=== PATIENT | male | born 1945 | race Hispanic/Latino ===

== ENCOUNTER 2021-07-31 09:00 | Inpatient (IN) | payer OTHER ==
[~2021-07-31] VITALS: Ht 167.6 cm; Wt 92.5 kg
[2021-07-31 10:00] VITALS: BP 145/84
[2021-08-01] MEDS ORDERED: CARB15DR OU (15:26)
[2021-08-01] MEDS ORDERED: PRAV40TA3 PO (15:26)
[2021-08-01] MEDS ORDERED: albuterol IH (15:26)
[2021-08-01] MEDS ORDERED: MIRT-93 PO (15:26)
[2021-08-01] MEDS ORDERED: GEMF600T89 PO (15:26)
[2021-08-01] MEDS ORDERED: BUSP5TAB3 PO (15:26)
[2021-08-01] MEDS ORDERED: ASPI-1197 PO (15:26)
[2021-08-02] VITALS (22 sets, daily range): BP systolic 103–150; BP diastolic 50–86
[2021-08-02] MEDS: CEFAZOLIN SODIUM 1 GM VIAL ONE ×2 (08:29→12:45)
[2021-08-02] MEDS ORDERED: ACETAMINOPHEN 500 MG TABLET ONE (09:04)
[2021-08-02] MEDS ORDERED: CELECOXIB 200 MG CAP ONE (09:05)
[2021-08-02] MEDS ORDERED: SUCCINYLCHOLINE CHLORIDE 20 MG/ML 10 ML VIAL ONE (10:07)
[2021-08-02] MEDS ORDERED: PROPOFOL 10 MG/ML 20ML VIAL IV ONE (10:07)
[2021-08-02] MEDS ORDERED: LIDOCAINE PF 100MG/5ML (2%) SYRINGE 5ML ONE (10:07)
[2021-08-02] MEDS ORDERED: FENTANYL CITRATE PF 50 MCG/1 ML 2ML VIAL ONE (10:07)
[2021-08-02] MEDS ORDERED: ROCURONIUM 10MG/1ML SYR 10 MG/ML ML ONE (10:08)
[2021-08-02] MEDS ORDERED: CEFAZOLIN SODIUM 1 GM VIAL ONE (12:44)
[2021-08-02] MEDS ORDERED: TRANEXAMIC ACID 1000MG/10ML ONE ×2 (12:44→15:04)
[2021-08-02] MEDS ORDERED: ONDANSETRON 4MG INJ ONE (14:17)
[2021-08-02] MEDS ORDERED: KETOROLAC 30MG VIAL (30MG/ML) ONE (14:17)
[2021-08-02] MEDS ORDERED: GLYCOPYRROLATE 1 MG/5 ML SYRINGE ONE (14:17)
[2021-08-02] MEDS ORDERED: MEPERIDINE-PF 25 MG/ML SYG ONE (14:18)
[2021-08-02] MEDS ORDERED: NEOSTIGMINE 5MG/5ML SYR IV ONE (14:18)
[2021-08-02] MEDS ORDERED: OXYCODONE HCL 5 MG TAB PO PRN (14:30)
[2021-08-02] MEDS: ACETAMINOPHEN 500 MG TABLET PO SCH ×2 (14:30→23:15)
[2021-08-02] MEDS ORDERED: KCL 20 MEQ ERTAB PO PRN (14:30)
[2021-08-02] MEDS ORDERED: CALCIUM CARB 500MG PO PRN (14:30)
[2021-08-02] MEDS ORDERED: FERROUS FUMARATE 324 MG TABLET PO PRN (14:30)
[2021-08-02] MEDS ORDERED: KETOROLAC 15MG/ML VIAL (15MG/ML) IV PRN (14:30)
[2021-08-02] MEDS ORDERED: DiphenhydrAMINE HCL 50 MG/ML VIAL IVP PRN (14:30)
[2021-08-02] MEDS ORDERED: TRAMADOL HCL 50 MG TABLET PO PRN (14:30)
[2021-08-02] MEDS ORDERED: POTASSIUM CHLORIDE 20MEQ/100ML 100 ML IV PRN (14:30)
[2021-08-02] MEDS ORDERED: POTASSIUM CHLORIDE 10% ELIXIR 20 MEQ/15 ML UDCUP PO PRN (14:30)
[2021-08-02] MEDS ORDERED: ONDANSETRON 4MG INJ IVP PRN (14:30)
[2021-08-02] MEDS ORDERED: TEMAZEPAM 15 MG CAPSULE PO PRN (14:30)
[2021-08-02] MEDS: 0.9%NACL 1000ML 1,000 ML IV SCH (14:30)
[2021-08-02] MEDS ORDERED: LIDOCAINE HCL-MPF 1% 2ML VIAL IV PRN (14:30)
[2021-08-02] MEDS: LACTATED RINGERS 1000ML 1,000 ML IV ONE (15:17)
[2021-08-02] MEDS: FAMOTIDINE 20MG TAB PO SCH (20:55)
[2021-08-02] MEDS: ASPIRIN 81 MG EC TAB PO SCH (20:55)
[2021-08-02] MEDS: CELECOXIB 200 MG CAP PO SCH (20:55)
[2021-08-02] MEDS: CEFAZOLIN SODIUM 1 GM VIAL IVP SCH (20:55)
[2021-08-03] VITALS (7 sets, daily range): BP systolic 105–145; BP diastolic 54–70
[2021-08-03] MEDS: 0.9%NACL 1000ML 1,000 ML IV SCH ×2 (00:30→10:30)
[2021-08-03] MEDS: CEFAZOLIN SODIUM 1 GM VIAL IVP SCH (03:07)
[2021-08-03 04:19] LABS: HEMATOCRIT 36.7 % (42-54); MEAN CORPUSCULAR HEMOGLOBIN 31.1 pg (27.0-33.0); MEAN CORPUSCULAR VOLUME 94.3 fL (79-99); RED BLOOD CELL COUNT(AUTO) 3.89 MIL/uL (4.50-6.20); RED CELL DISTRIBUTION WIDTH 12.7 % (11.0-15.5); WHITE BLOOD COUNT (AUTO) 9.5 K/uL (4.8-10.8)
[2021-08-03 04:36] LABS: CREATININE 0.9 mg/dL (0.5-1.5); POTASSIUM 3.6 mmol/L (3.5-5.1)
[2021-08-03] MEDS: ACETAMINOPHEN 500 MG TABLET PO SCH ×3 (06:30→21:12)
[2021-08-03] MEDS: ASPIRIN 81 MG EC TAB PO SCH ×2 (08:26→21:11)
[2021-08-03] MEDS: POLYETHYLENE GLYCOL 3350 17 GM POWD.PACK PO SCH (08:26)
[2021-08-03] MEDS: CELECOXIB 200 MG CAP PO SCH ×2 (08:26→21:11)
[2021-08-03] MEDS: FAMOTIDINE 20MG TAB PO SCH ×2 (08:26→21:11)
[2021-08-03] MEDS: OXYCODONE HCL 5 MG TAB PO PRN (21:22)
[2021-08-04 04:00] VITALS: BP 114/77
[2021-08-04] MEDS: OXYCODONE HCL 5 MG TAB PO PRN (07:45)
[2021-08-04 08:00] VITALS: BP 140/77
[2021-08-04] MEDS: CELECOXIB 200 MG CAP PO SCH (09:56)
[2021-08-04] MEDS: ASPIRIN 81 MG EC TAB PO SCH (09:56)
[2021-08-04] MEDS: POLYETHYLENE GLYCOL 3350 17 GM POWD.PACK PO SCH (09:56)
[2021-08-04] MEDS: FAMOTIDINE 20MG TAB PO SCH (09:56)
[2021-08-04 12:00] VITALS: BP 116/65
[2021-08-04] MEDS ORDERED: AEC81 PO (13:21)
[2021-08-04] MEDS ORDERED: HYDR-4060 PO (13:21)
[2021-08-04] MEDS ORDERED: MAGNESIUM CITRATE 296 ML SOLUTION PO ONE (14:00)
[2021-08-04] MEDS: ACETAMINOPHEN 500 MG TABLET PO SCH (14:19)
[2021-08-05] MEDS ORDERED: BISACODYL 10 MG SUPP.RECT RC PRN (14:30)
== END 2021-08-04 17:30 | disposition home health service (06) | DRG 470 ==
LOC: EDSTATUS 09:00 → DAHIP 08-02 07:24 → OBSVTOIN 08-02 07:24 → INTOOBSV 08-02 07:24 → 4AH 08-02 16:29
PROVIDERS: ADMIT Orthopaedic Surgery; ATTEND Orthopaedic Surgery
PROC: 0SRC0J9 Replacement of Right Knee Joint with Synthetic Substitute, Cemented, Open Approach (ICD-10-PCS; principal; 2021-08-02 10:00)
DX: M17.11 Unilateral primary osteoarthritis, right knee (principal); D64.9 Anemia, unspecified; Z20.822 Contact with and (suspected) exposure to COVID-19; E78.00 Pure hypercholesterolemia, unspecified; I10 Essential (primary) hypertension; Z83.3 Family history of diabetes mellitus
CPT/HCPCS: 36415; 80048; 85027; 87635; 87641; 97039; C9803; G0378; J0330; J0690; J1885; J2001; J2175; J2405; J2704; J2710; J3010; J3490; J7120

== ENCOUNTER 2023-02-11 11:00 | Inpatient (IN) | payer OTHER ==
[~2023-02-11] VITALS: Ht 170.2 cm; Wt 91.4 kg
[~2023-02-11 11:00] MED LIST: AEC81 PO; BUSP5TAB3 PO; GEMF600T89 PO; MIRT-93 PO; PRAV40TA3 PO
[2023-02-11 11:04] LABS: APPEARANCE,URINE CLEAR (CLEAR); BILIRUBIN,URINE NEGATIVE (NEGATIVE); COLOR,URINE YELLOW (YELLOW); GLUCOSE, URINE (UA) NEGATIVE (NEGATIVE); KETONES,URINE NEGATIVE (NEGATIVE); LEUKOCYTE ESTERASE ,URINE 25 Leu/uL (NEGATIVE); NITRATE,URINE NEGATIVE (NEGATIVE); OCCULT BLOOD,URINE NEGATIVE (NEGATIVE); PROTEIN,URINE 10 mg/dL (NEGATIVE); UROBILINOGEN,URINE 0.2 mg/dL (0.2-1.0)
[2023-02-11 11:18] LABS: BASOPHILS % (AUTO) 0.6 % (0.0-5.0); EOSINOPHILS % (AUTO) 1.1 % (0.0-8.0); HEMATOCRIT 44.3 % (42-54); MEAN CORPUSCULAR HGB CONC 32.3 g/dL (32.0-36.0); MEAN CORPUSCULAR VOLUME 83.7 fL (79-99); MONOCYTES % (AUTO) 7.2 % (3.0-13.0); NEUTROPHILS % (AUTO) 66.8 % (40.0-77.0); PLATELET COUNT (AUTO) 239 K/uL (130-400); RED BLOOD CELL COUNT(AUTO) 5.29 MIL/uL (4.50-6.20); RED CELL DISTRIBUTION WIDTH 22.2 % (11.0-15.5); WHITE BLOOD COUNT (AUTO) 6.6 K/uL (4.8-10.8)
[2023-02-11 11:21] LABS: ALBUMIN 3.7 g/dL (3.5-5.0); CARBON DIOXIDE 29 mmol/L (21-32); CHLORIDE 105 mmol/L (101-111); CREATININE 0.7 mg/dL (0.5-1.5); GLOMERULAR FILTR. RATE CALC 96 mL/min (>90); GLUCOSE,RANDOM 109 mg/dL (70-105); POTASSIUM 3.6 mmol/L (3.5-5.1); SODIUM SERUM 140 mmol/L (136-145); UREA NITROGEN, BLOOD 12 mg/dL (7-18)
[2023-02-11 11:22] LABS: CRP QUANTITATIVE < 2.00 mg/L (0.00-9.0)
[2023-02-11 11:23] LABS: INR 1.02 (0.85-1.15); PROTHROMBIN TIME 11.1 SEC (9.6-11.6)
[2023-02-11 11:24] LABS: PARTIAL THROMBOPLASTIN TIME 29.3 SEC (26.3-35.5)
[2023-02-11 11:28] LABS: BACTERIA,URINE RARE /HPF (None Seen); MUCUS,URINE RARE LPF (None Seen); SQUAMOUS EPITHELIAL CELL,UR RARE /HPF (0-2)
[2023-02-11 15:11] VITALS: BP 145/78
[2023-02-11] MEDS ORDERED: CYAN1TAB44 PO (15:18)
[2023-02-11] MEDS ORDERED: OMEG-125 PO (15:18)
[2023-02-11] MEDS ORDERED: IBUP-2784 PO (15:18)
[2023-02-13] VITALS (25 sets, daily range): BP systolic 116–162; BP diastolic 57–93
[2023-02-13] MEDS ORDERED: CEFAZOLIN SODIUM 2 GM VIAL ONE (07:13)
[2023-02-13] MEDS ORDERED: LACTATED RINGERS 1000ML 1,000 ML IV ONE (07:13)
[2023-02-13] MEDS ORDERED: TRANEXAMIC ACID 1000MG/10ML ONE (07:55)
[2023-02-13] MEDS ORDERED: KETOROLAC 30MG VIAL (30MG/ML) ONE (07:55)
[2023-02-13] MEDS ORDERED: ROPIVACAINE 0.5% 5MG/ML 30ML IJ ONE ×2 (07:56→09:25)
[2023-02-13] MEDS ORDERED: PROPOFOL 10 MG/ML 20ML VIAL IV ONE (08:24)
[2023-02-13] MEDS ORDERED: ONDANSETRON 4MG INJ ONE (08:24)
[2023-02-13] MEDS ORDERED: FENTANYL CITRATE PF 50 MCG/1 ML 2ML VIAL ONE ×3 (08:25→11:42)
[2023-02-13] MEDS ORDERED: MIDAZOLAM HCL 1 MG/ML 2ML VIAL ONE (08:25)
[2023-02-13] MEDS ORDERED: KETOROLAC 30MG VIAL (30MG/ML) IM ONE (09:25)
[2023-02-13] MEDS ORDERED: ROCURONIUM 10MG/1ML SYR 10 MG/ML ML ONE (09:45)
[2023-02-13] MEDS ORDERED: DEXAMETHASONE SOD PHOSPHATE 10MG/ML 1ML VIAL ONE (10:01)
[2023-02-13] MEDS ORDERED: CEFAZOLIN SODIUM 2 GM VIAL IVPB ONE (10:01)
[2023-02-13] MEDS ORDERED: TRANEXAMIC ACID 1000MG/10ML IV ONE ×2 (10:02→11:20)
[2023-02-13] MEDS ORDERED: NEOSTIGMINE 5MG/5ML SYR IV ONE (11:38)
[2023-02-13] MEDS ORDERED: GLYCOPYRROLATE 1 MG/5 ML SYRINGE ONE (11:38)
[2023-02-13] MEDS ORDERED: CYCLOBENZAPRINE HCL 10 MG TABLET PO PRN (12:00)
[2023-02-13] MEDS ORDERED: FERROUS FUMARATE 324 MG TABLET PO PRN (12:00)
[2023-02-13] MEDS ORDERED: POTASSIUM CHLORIDE 20MEQ/100ML 100 ML IV PRN (12:00)
[2023-02-13] MEDS ORDERED: CALCIUM CARB 500MG PO PRN (12:00)
[2023-02-13] MEDS ORDERED: TRAMADOL HCL 50 MG TABLET PO PRN (12:00)
[2023-02-13] MEDS ORDERED: DiphenhydrAMINE HCL 50 MG/ML VIAL IVP PRN (12:00)
[2023-02-13] MEDS ORDERED: POTASSIUM CHLORIDE 10% ELIXIR 20 MEQ/15 ML UDCUP PO PRN (12:00)
[2023-02-13] MEDS ORDERED: ONDANSETRON 4MG INJ IVP PRN (12:00)
[2023-02-13] MEDS: GABAPENTIN 100 MG CAPSULE PO SCH ×2 (16:18→21:00)
[2023-02-13] MEDS: 0.9%NACL 1000ML 1,000 ML IV SCH ×2 (16:18→21:12)
[2023-02-13] MEDS: CEFAZOLIN SODIUM 2 GM VIAL IVPB SCH (18:18)
[2023-02-13] MEDS: KETOROLAC 15MG/ML VIAL (15MG/ML) IV SCH (18:19)
[2023-02-13] MEDS: DOCUSATE SODIUM 100 MG CAP PO SCH (21:10)
[2023-02-14] VITALS (7 sets, daily range): BP systolic 125–163; BP diastolic 65–84
[2023-02-14] MEDS ORDERED: CEFAZOLIN SODIUM 2 GM VIAL ONE (02:03)
[2023-02-14] MEDS: KETOROLAC 15MG/ML VIAL (15MG/ML) IV SCH ×2 (02:16→10:14)
[2023-02-14] MEDS: CEFAZOLIN SODIUM 2 GM VIAL IVPB SCH (02:17)
[2023-02-14 05:27] LABS: HEMATOCRIT 35.9 % (42-54); MEAN CORPUSCULAR HEMOGLOBIN 27.3 pg (27.0-33.0); MEAN CORPUSCULAR VOLUME 85.3 fL (79-99); RED BLOOD CELL COUNT(AUTO) 4.21 MIL/uL (4.50-6.20); RED CELL DISTRIBUTION WIDTH 20.7 % (11.0-15.5); WHITE BLOOD COUNT (AUTO) 11.2 K/uL (4.8-10.8)
[2023-02-14 05:40] LABS: CREATININE 0.8 mg/dL (0.5-1.5); POTASSIUM 3.3 mmol/L (3.5-5.1)
[2023-02-14] MEDS: DOCUSATE SODIUM 100 MG CAP PO SCH ×2 (08:58→21:51)
[2023-02-14] MEDS: POLYETHYLENE GLYCOL 3350 17 GM POWD.PACK PO SCH (08:58)
[2023-02-14] MEDS: ASPIRIN 325MG TAB PO SCH (08:59)
[2023-02-14] MEDS: GABAPENTIN 100 MG CAPSULE PO SCH ×3 (08:59→21:52)
[2023-02-14] MEDS: 0.9%NACL 1000ML 1,000 ML IV SCH (09:00)
[2023-02-14] MEDS ORDERED: KETOROLAC 15MG/ML VIAL (15MG/ML) IV PRN (18:00)
[2023-02-14] MEDS: KCL 20 MEQ ERTAB PO PRN ×2 (21:51→23:36)
[2023-02-15 03:46] VITALS: BP 155/76
[2023-02-15 08:00] VITALS: BP 151/78
[2023-02-15] MEDS: DOCUSATE SODIUM 100 MG CAP PO SCH ×2 (09:34→22:05)
[2023-02-15] MEDS: POLYETHYLENE GLYCOL 3350 17 GM POWD.PACK PO SCH (09:34)
[2023-02-15] MEDS: GABAPENTIN 100 MG CAPSULE PO SCH ×3 (09:34→22:05)
[2023-02-15] MEDS: ASPIRIN 325MG TAB PO SCH (09:34)
[2023-02-15] MEDS: HYDROCODONE/ACETAMINOPHEN 5/325 MG TAB PO PRN (09:41)
[2023-02-15 12:00] VITALS: BP 145/80
[2023-02-15 16:00] VITALS: BP 140/81
[2023-02-15 20:00] VITALS: BP 146/69
[2023-02-15] MEDS: KCL 20 MEQ ERTAB PO PRN (22:05)
[2023-02-16] VITALS: BP 138/78
[2023-02-16 04:00] VITALS: BP 142/71
[2023-02-16 08:00] VITALS: BP 150/74
[2023-02-16] MEDS: ASPIRIN 325MG TAB PO SCH (08:38)
[2023-02-16] MEDS: POLYETHYLENE GLYCOL 3350 17 GM POWD.PACK PO SCH (08:38)
[2023-02-16] MEDS: DOCUSATE SODIUM 100 MG CAP PO SCH ×2 (08:38→20:23)
[2023-02-16] MEDS: GABAPENTIN 100 MG CAPSULE PO SCH ×4 (08:38→20:23)
[2023-02-16] MEDS: HYDROCODONE/ACETAMINOPHEN 5/325 MG TAB PO PRN (08:39)
[2023-02-16] MEDS ORDERED: PENICILLIN G POTASSIUM 5,000,000 UNIT VIAL IV SCH (09:00)
[2023-02-16] MEDS ORDERED: COMPOUND IV REFRIGERATED 1 EACH IVSOLN MISC PRN (11:00)
[2023-02-16] MEDS: PENICILLIN G IV SCH ×3 (11:02→22:28)
[2023-02-16] MEDS: [UNRECOGNIZED DRUG - OTHER] IV SCH ×3 (11:02→22:28)
[2023-02-16 11:43] VITALS: BP 128/74
[2023-02-16] MEDS ORDERED: BISACODYL 10 MG SUPP.RECT RC PRN (12:00)
[2023-02-16 15:49] VITALS: BP 128/73
[2023-02-16 20:00] VITALS: BP 144/78
[2023-02-17] VITALS: BP_SYST 132; BP_SYST 133; BP_DIAS 73; BP_DIAS 75
[2023-02-17 04:00] VITALS: BP 137/72
[2023-02-17] MEDS: PENICILLIN G IV SCH (04:22)
[2023-02-17] MEDS: [UNRECOGNIZED DRUG - OTHER] IV SCH (04:22)
[2023-02-17 07:57] VITALS: BP 135/79
[2023-02-17] MEDS: POLYETHYLENE GLYCOL 3350 17 GM POWD.PACK PO SCH (08:57)
[2023-02-17] MEDS: ASPIRIN 325MG TAB PO SCH (08:58)
[2023-02-17] MEDS: DOCUSATE SODIUM 100 MG CAP PO SCH ×2 (08:58→19:51)
[2023-02-17 11:30] VITALS: BP 128/79
[2023-02-17] MEDS: GABAPENTIN 100 MG CAPSULE PO SCH ×2 (13:16→19:51)
[2023-02-17 15:55] VITALS: BP 121/77
[2023-02-17] MEDS ORDERED: PENICILLIN G POTASSIUM 5,000,000 UNIT VIAL IV SCH (18:00)
[2023-02-17] MEDS: CEFTRIAXONE 1G VIAL IVPB SCH (19:51)
[2023-02-17] MEDS: HYDROCODONE/ACETAMINOPHEN 5/325 MG TAB PO PRN (19:59)
[2023-02-17 20:00] VITALS: BP 128/69
[2023-02-18] VITALS (7 sets, daily range): BP systolic 135–154; BP diastolic 68–81
[2023-02-18 04:43] LABS: BASOPHILS % (AUTO) 0.6 % (0.0-5.0); EOSINOPHILS % (AUTO) 2.8 % (0.0-8.0); HEMATOCRIT 33.8 % (42-54); MEAN CORPUSCULAR HEMOGLOBIN 27.6 pg (27.0-33.0); MEAN CORPUSCULAR HGB CONC 32.5 g/dL (32.0-36.0); MEAN CORPUSCULAR VOLUME 84.9 fL (79-99); MONOCYTES % (AUTO) 12.6 % (3.0-13.0); PLATELET COUNT (AUTO) 186 K/uL (130-400); RED BLOOD CELL COUNT(AUTO) 3.98 MIL/uL (4.50-6.20); RED CELL DISTRIBUTION WIDTH 18.6 % (11.0-15.5); WHITE BLOOD COUNT (AUTO) 6.7 K/uL (4.8-10.8)
[2023-02-18 04:51] LABS: CREATININE 0.7 mg/dL (0.5-1.5); MAGNESIUM 1.8 mg/dL (1.80-2.40); PHOSPHORUS 3.6 mg/dL (2.5-4.9); POTASSIUM 3.4 mmol/L (3.5-5.1)
[2023-02-18] MEDS: KCL 20 MEQ ERTAB PO PRN ×2 (05:58→11:47)
[2023-02-18] MEDS: HYDROCODONE/ACETAMINOPHEN 5/325 MG TAB PO PRN ×2 (07:43→21:32)
[2023-02-18] MEDS: DOCUSATE SODIUM 100 MG CAP PO SCH ×2 (09:02→21:31)
[2023-02-18] MEDS: GABAPENTIN 100 MG CAPSULE PO SCH ×3 (09:02→21:38)
[2023-02-18] MEDS: POLYETHYLENE GLYCOL 3350 17 GM POWD.PACK PO SCH (09:02)
[2023-02-18] MEDS: ASPIRIN 325MG TAB PO SCH (09:02)
[2023-02-18] MEDS ORDERED: KETOROLAC 15MG/ML VIAL (15MG/ML) IM PRN (14:00)
[2023-02-18] MEDS: FAMOTIDINE 20MG TAB PO SCH (21:31)
[2023-02-18] MEDS: CEFTRIAXONE 1G VIAL IVPB SCH (21:32)
[2023-02-19 04:38] VITALS: BP 137/71
[2023-02-19 05:46] LABS: BASOPHILS % (AUTO) 0.7 % (0.0-5.0); EOSINOPHILS % (AUTO) 3.9 % (0.0-8.0); HEMATOCRIT 30.8 % (42-54); LYMPHOCYTES % (AUTO) 24.9 % (21.0-51.0); MEAN CORPUSCULAR HEMOGLOBIN 27.7 pg (27.0-33.0); MEAN CORPUSCULAR HGB CONC 32.8 g/dL (32.0-36.0); MEAN CORPUSCULAR VOLUME 84.4 fL (79-99); MONOCYTES % (AUTO) 13.3 % (3.0-13.0); NEUTROPHILS % (AUTO) 55.9 % (40.0-77.0); PLATELET COUNT (AUTO) 223 K/uL (130-400); RED BLOOD CELL COUNT(AUTO) 3.65 MIL/uL (4.50-6.20); RED CELL DISTRIBUTION WIDTH 18.6 % (11.0-15.5)
[2023-02-19 05:53] LABS: CREATININE 0.6 mg/dL (0.5-1.5); POTASSIUM 3.3 mmol/L (3.5-5.1)
[2023-02-19] MEDS: HYDROCODONE/ACETAMINOPHEN 5/325 MG TAB PO PRN ×2 (07:41→18:00)
[2023-02-19 08:00] VITALS: BP 136/70
[2023-02-19] MEDS: POLYETHYLENE GLYCOL 3350 17 GM POWD.PACK PO SCH (08:43)
[2023-02-19] MEDS: GABAPENTIN 100 MG CAPSULE PO SCH ×3 (08:43→21:40)
[2023-02-19] MEDS: ASPIRIN 325MG TAB PO SCH (08:43)
[2023-02-19] MEDS: FAMOTIDINE 20MG TAB PO SCH ×2 (08:43→21:40)
[2023-02-19] MEDS: DOCUSATE SODIUM 100 MG CAP PO SCH ×2 (08:43→21:40)
[2023-02-19] MEDS: KCL 20 MEQ ERTAB PO PRN ×3 (08:43→14:40)
[2023-02-19 11:16] VITALS: BP 142/82
[2023-02-19 16:00] VITALS: BP 132/57
[2023-02-19 19:46] VITALS: BP 120/74
[2023-02-19] MEDS: CEFTRIAXONE 1G VIAL IVPB SCH (21:40)
[2023-02-19 23:37] VITALS: BP 128/68
[2023-02-20 03:11] VITALS: BP 139/81
[2023-02-20 05:26] LABS: BASOPHILS % (AUTO) 0.6 % (0.0-5.0); EOSINOPHILS % (AUTO) 3.6 % (0.0-8.0); HEMATOCRIT 30.8 % (42-54); LYMPHOCYTES % (AUTO) 18.7 % (21.0-51.0); MEAN CORPUSCULAR HEMOGLOBIN 27.8 pg (27.0-33.0); MEAN CORPUSCULAR HGB CONC 32.5 g/dL (32.0-36.0); MEAN CORPUSCULAR VOLUME 85.6 fL (79-99); MONOCYTES % (AUTO) 12.6 % (3.0-13.0); NEUTROPHILS % (AUTO) 63.3 % (40.0-77.0); PLATELET COUNT (AUTO) 256 K/uL (130-400); RED CELL DISTRIBUTION WIDTH 18.3 % (11.0-15.5); WHITE BLOOD COUNT (AUTO) 6.9 K/uL (4.8-10.8)
[2023-02-20 06:01] LABS: CREATININE 0.7 mg/dL (0.5-1.5); POTASSIUM 3.7 mmol/L (3.5-5.1)
[2023-02-20] MEDS: HYDROCODONE/ACETAMINOPHEN 5/325 MG TAB PO PRN (06:14)
[2023-02-20 08:00] VITALS: BP 151/58
[2023-02-20] MEDS: DOCUSATE SODIUM 100 MG CAP PO SCH (09:17)
[2023-02-20] MEDS: GABAPENTIN 100 MG CAPSULE PO SCH ×2 (09:18→14:44)
[2023-02-20] MEDS: ASPIRIN 325MG TAB PO SCH (09:18)
[2023-02-20] MEDS: FAMOTIDINE 20MG TAB PO SCH (09:18)
[2023-02-20] MEDS: POLYETHYLENE GLYCOL 3350 17 GM POWD.PACK PO SCH (09:19)
[2023-02-20] MEDS: KCL 20 MEQ ERTAB PO PRN ×2 (09:19→12:41)
[2023-02-20 10:50] VITALS: BP 124/67
[2023-02-20 15:32] VITALS: BP 141/74
== END 2023-02-20 17:05 | DRG 470 ==
LOC: DAHIP 02-13 05:51 → 4CH 02-13 15:10
PROVIDERS: ADMIT Student in an Organized Health Care Education/Training Program; ATTEND Student in an Organized Health Care Education/Training Program
PROC: 3E0T3BZ Introduction of Anesthetic Agent into Peripheral Nerves and Plexi, Percutaneous Approach (ICD-10-PCS; 2023-02-13)
PROC: 3E0T33Z Introduction of Anti-inflammatory into Peripheral Nerves and Plexi, Percutaneous Approach (ICD-10-PCS; 2023-02-13)
PROC: 0SRD0J9 Replacement of Left Knee Joint with Synthetic Substitute, Cemented, Open Approach (ICD-10-PCS; principal; 2023-02-13 09:46)
DX: M17.12 Unilateral primary osteoarthritis, left knee (principal); D62 Acute posthemorrhagic anemia; N39.0 Urinary tract infection, site not specified; Z20.822 Contact with and (suspected) exposure to COVID-19; E87.6 Hypokalemia; B95.5 Unspecified streptococcus as the cause of diseases classified elsewhere; Z96.651 Presence of right artificial knee joint; E66.09 Other obesity due to excess calories; E78.5 Hyperlipidemia, unspecified; Z68.31 Body mass index [BMI] 31.0-31.9, adult
CPT/HCPCS: 36415; 73560; 80048; 80170; 81001; 82040; 83735; 84100; 84134; 85025; 85027; 85610; 85730; 86140; 87077; 87088; 87186; 87426; 87635; 87641; 97039; G0378; J0696; J1100; J1885; J2250; J2405; J2540; J2704; J2710; J2795; J3010; J3490; J7120

== ENCOUNTER 2023-08-22 11:21 | Emergency (ER) | payer OTHER ==
[~2023-08-22] VITALS: Ht 167.6 cm; Wt 88.5 kg
[~2023-08-22 11:21] MED LIST changes: +CYAN1TAB44 PO; +OMEG-125 PO
[2023-08-22 11:22] VITALS: BP 140/74; PULSE 99; RESP 20
[2023-08-22] MEDS ORDERED: DIPH,PERTUSS(ACELL),TET VAC/PF 0.5 ML VIAL IM ONE (13:30)
[2023-08-22] MEDS ORDERED: LIDOCAINE 1%-EPI 1:100,000 20 ML VIAL IJ SCH (13:30)
[2023-08-22] MEDS ORDERED: MUPI22OI2 TP (13:52)
[2023-08-22] MEDS ORDERED: TETANUS/DIPHTHERIA TOXOID [ADULT] 0.5 ML VIAL IM ONE (14:00)
== END 2023-08-22 14:14 | disposition home or self-care (01) ==
LOC: EEVIPCON 11:21 → EDH 11:21
DX: S51.812A Laceration without foreign body of left forearm, initial encounter (principal); E78.00 Pure hypercholesterolemia, unspecified; Z79.899 Other long term (current) drug therapy; W26.8XXA Contact with other sharp object(s), not elsewhere classified, initial encounter; Y93.89 Activity, other specified; Y92.89 Other specified places as the place of occurrence of the external cause; Y99.8 Other external cause status
CPT/HCPCS: 12004; 90471; 90715; 96372